=== PATIENT | male | born 1990 | race Caucasian/White ===

== ENCOUNTER 2022-01-25 19:44 | Emergency (ER) | payer MEDICAID ==
[~2022-01-25] VITALS: Ht 170.2 cm; Wt 86.2 kg
--- NOTE | 2022-01-25 19:46 | NUR ---
EVELYN CHP TAKEN TO CHAIR C
[2022-01-25 19:49] VITALS: BP 147/93
--- NOTE | 2022-01-25 20:03 | NUR ---
PATIENT BIB [facility]. PATIENT EXAMINED BY DR. ALMAGUER. PATIENT MEDICALLY CLEARED AND RELEASED IN CUSTODY IN STABLE CONDITION. ORIGINAL PRE-BOOK FORM GIVEN TO OFFICER JOSHUA, [id number].
== END 2022-01-25 20:03 ==
LOC: MED 19:44
DX: F10.129 Alcohol abuse with intoxication, unspecified (principal); Z02.89 Encounter for other administrative examinations; V89.2XXA Person injured in unspecified motor-vehicle accident, traffic, initial encounter; Y93.89 Activity, other specified; Y92.89 Other specified places as the place of occurrence of the external cause; Y99.8 Other external cause status
CPT/HCPCS: 99283